=== PATIENT | female | born 1980 | race Caucasian/White ===

== ENCOUNTER 2023-02-06 09:17 | Outpatient (CLI) | payer OTHER, SELFPAY ==
--- NOTE | ~2023-02-06 | MM_ITS ---
EXAMINATION: MM screening donya BI w brandon HISTORY: Screening mammogram; baseline examination TECHNIQUE: Craniocaudal and mediolateral oblique 3-D tomosynthesis images were obtained and synthetic 2-D images were generated. CAD analysis was submitted and interpreted. COMPARISON: No prior mammogram is available for comparison at this institution. BREAST PARENCHYMAL COMPOSITION: There are scattered areas of fibroglandular density. FINDINGS: There is no evidence of suspicious mass, calcification, or architectural distortion to sugg est malignancy in either breast. There has been no suspicious interval change. IMPRESSION: 1. No mammographic evidence of malignancy. 2. Recommend routine screening mammography in one year. BI-RADS Category 1: Negative Reviewed, dictated and finalized at location A. UCT ACCOUNTANT
== END 2023-02-06 09:18 | disposition home or self-care (01) ==
LOC: ANHIMG 09:25
PROVIDERS: PCP Internal Medicine; Visit Provider Obstetrics & Gynecology
DX: Z12.31 Encounter for screening mammogram for malignant neoplasm of breast (principal)
CPT/HCPCS: 77063; 77067

== ENCOUNTER 2024-03-05 09:05 | Outpatient (CLI) | payer OTHER, SELFPAY ==
[2024-03-05 09:29] LABS: Basophils Absolute Auto 0.1 K/mm3 (0.0-0.1); Basophils Percent Auto 0.9 % (0.2-1.2); Hematocrit 43.6 % (37.0-47.0); Hemoglobin 14.4 g/dL (12.0-15.0); Immature Granulocyte Absolute 0.02 K/mm3 (0.00-0.031); Immature Granulocyte Percent A 0.3 % (0-0.5); Lymphocytes Absolute Auto 1.89 K/mm3 (0.9-3.2); Lymphocytes Percent Auto 27.9 % (18.3-44.2); Mean Corpuscular Hemoglobin 30.1 pg (26-34); Mean Platelet Volume 9.7 fl (7.4-10.4); Monocytes Absolute Auto 0.4 K/mm3 (0.1-0.6); Monocytes Percent Auto 5.5 % (2.6-8.5); Neutrophils Absolute Auto 4.4 K/mm3 (1.3-6.7); Neutrophils Percent Auto 65.4 % (45.5-73.1); Platelet Count Result 245 k/mm3 (150-375); Red Blood Count 4.79 M/mm3 (4.2-5.4); Red Cell Distribution Width 12.9 % (11.5-14.5); White Blood Count 6.8 K/mm3 (4.5-10.0)
== END 2024-03-05 09:06 | disposition home or self-care (01) ==
PROVIDERS: PCP Internal Medicine; Visit Provider Obstetrics & Gynecology
DX: Z01.812 Encounter for preprocedural laboratory examination (principal); R87.619 Unspecified abnormal cytological findings in specimens from cervix uteri
CPT/HCPCS: 36415; 85025; 86850; 86900; 86901

== ENCOUNTER 2024-03-08 01:00 | Day surgery (SDC) | payer OTHER, SELFPAY ==
--- NOTE | 2024-02-27 16:26 | PC.NURSE ---
Report to the Outpatient Waiting Room, entrance under the green pavilion located off [facility], at time 0930 on date 03/08/24. Planned Procedure Time:1130.? Time changes happen often and if your time is changed the preop area will call you the afternoon before. - You and your visitor will be asked to self-screen and do not enter if you have any COVID symptoms. Please call surgeon if you need to reschedule. - A mask is optional within the hospital at this time. Patients may have clear liquids (water, carbonated beverages, clear teas, apple juice) until 3 hours prior to surgery with a maximum of 20 ounces. 0730 - No food from midnight until time of surgery and no smoking. This includes no chewing gum, candy or mints. - Infants may have breast milk until 4 hours before surgery, formula 6 hours prior to surgery. - Children will be allowed to drink immediately following surgery.? If applicable, please bring a bottle or sippy cup to assist with drinking. Juice, water, soda, and popsicles are readily available.? For infants on formula, please bring formula the day of surgery.? Pacifiers are allowed. Take only the following medications with a SIP of water on the morning of surgery: Xanax, Wellbutrin, Topamax, Propylthiouracil, Control, Rizatriptan DO NOT STOP ANY OF YOUR OTHER PRESCRIPTION MEDICATIONS PRIOR TO SURGERY EXCEPT THE FOLLOWING Medications to discontinue per physician Semaglutid- Last dose patient took was January 30, 2024 Date to take last dose Please no make-up, nail mongolian, hairspray, perfume, deodorant, or body powder the day of surgery.? No jewelry (including any body piercings) or valuables the day of surgery, leave them at home.? Please take a shower or bath the night before, or the morning of, surgery with an antibacterial soap.? Wear comfortable, loose fitting clothing.? Children are encouraged to wear pajamas. - Jewelry must be removed prior to entering the operating room.? Rings and piercings that are not removed may be cut off. - The hospital will not accept responsibility for valuables.? - Please leave all valuables, including medications, at home the day of surgery. If you are going home after surgery, a licensed flatbed driver must drive you home.? - NO public transportation without another adult if you receive anesthesia. - We recommend that an adult stay with you for 24 hours following discharge. - We also recommend that you do not drive, make important decision, drink alcoholic beverages, or take any drugs that were not prescribed by your health care provider for at least 24 hours after your discharge time. For Pediatric surgeries, we recommend two adults accompany the child home. Follow any additional instructions given to you from your surgeon. Telephone instructions given to Patient- Rosa Isela Davis and asked if any additional questions and then verbalized understanding. Patient advised to call surgeon office or pre surgery nurse liaison [phone] if any additional questions.
--- NOTE | 2024-02-27 16:56 | PC.NURSE ---
Report to the Outpatient Waiting Room, entrance under the green pavilion located off [facility], at time 0930 on date 03/08/24. Planned Procedure Time: 1130.? Time changes happen often and if your time is changed the preop area will call you the afternoon before. - You and your visitor will be asked to self-screen and do not enter if you have any COVID symptoms. Please call surgeon if you need to reschedule. - A mask is optional within the hospital at this time. Patients may have clear liquids (water, carbonated beverages, clear teas, apple juice) until 3 hours prior to surgery with a maximum of 20 ounces. 0730 - No food from midnight until time of surgery and no smoking. This includes no chewing gum, candy or mints. - Infants may have breast milk until 4 hours before surgery, formula 6 hours prior to surgery. - Children will be allowed to drink immediately following surgery.? If applicable, please bring a bottle or sippy cup to assist with drinking. Juice, water, soda, and popsicles are readily available.? For infants on formula, please bring formula the day of surgery.? Pacifiers are allowed. Take only the following medications with a SIP of water on the morning of surgery: Xanax, Wellbutrin, Topamax, Tirosint, Control, Rizatriptan DO NOT STOP ANY OF YOUR OTHER PRESCRIPTION MEDICATIONS PRIOR TO SURGERY EXCEPT THE FOLLOWING Medications to discontinue per physician Semaglutide Date to take last dose Patient took last dose on Jan 30, 2024 Please no make-up, nail luxembourger, hairspray, perfume, deodorant, or body powder the day of surgery.? No jewelry (including any body piercings) or valuables the day of surgery, leave them at home.? Please take a shower or bath the night before, or the morning of, surgery with an antibacterial soap.? Wear comfortable, loose fitting clothing.? Children are encouraged to wear pajamas. - Jewelry must be removed prior to entering the operating room.? Rings and piercings that are not removed may be cut off. - The hospital will not accept responsibility for valuables.? - Please leave all valuables, including medications, at home the day of surgery. If you are going home after surgery, a licensed restaurant delivery driver must drive you home.? - NO public transportation without another adult if you receive anesthesia. - We recommend that an adult stay with you for 24 hours following discharge. - We also recommend that you do not drive, make important decision, drink alcoholic beverages, or take any drugs that were not prescribed by your health care provider for at least 24 hours after your discharge time. For Pediatric surgeries, we recommend two adults accompany the child home. Follow any additional instructions given to you from your surgeon. Telephone instructions given to Patient- Rosa Isela Davis and asked if any additional questions and then verbalized understanding. Patient advised to call surgeon office or pre surgery nurse liaison [phone] if any additional questions.
[2024-02-27 16:59] VITALS: BMI 21.6
--- NOTE | 2024-03-05 12:30 | PM.IMHP ---
H&P: HPI History of Present Illness Date/Time: 03/05/24 12:30 Chief Complaint: recurrent high-grade dysplasia Narrative: 43-year-old multiparous patient admitted for robotic hysterectomy bilateral salpingectomy secondary to recurrent high-grade OSCAR. She has had multiple colposcopies and leaps she has return with several episodes of high-grade OSCAR. She opts for hysterectomy and bilateral salpingectomy. Risks and benefits of this procedure reviewed including but not exclusive of , aspiration pneumonia, bleeding, transfusion, perforation injury to bowel, bladder, ureters, or other internal organs with need for open laparotomy. She received the [employer] handout entitled hysterectomy as well as de Lida handout. She had all questions answered. She asked to proceed. Review of Systems Review of Systems: All systems reviewed & are unremarkable except as noted in HPI and below PMFSH Family History Family History Grandparent Family history of Alzheimer's disease Family history of blood dyscrasia Family history of mental disorder Depression Family history of lung cancer Sibling Family history of migraine headaches Patient's sister is in good health Family history of allergic disorder Mother Family history of migraine headaches Patient's mother is in good health Father Hypertension Patient's father is in good health Family history of allergic disorder Other Family history of pancreatic cancer Social History Social History Smoking status: Never smoker Alcohol intake: never Spiritual care concerns: No Meds Home Medications and Allergies Home Medications ?Medication ?Instructions ?Recorded ?Confirmed ?Type alprazolam 0.5 mg tablet 0.5 mg PO BID PRN anxiety 02/27/24 02/27/24 History bupropion HCl 300 mg 24 hr tablet, 300 mg PO DAILY 02/27/24 02/27/24 History extended release (Wellbutrin XL) levothyroxine 150 mcg capsule 150 mcg PO DAILY 02/27/24 02/27/24 History (Tirosint) norgestrel 0.3 mg-ethinyl 1 tablet PO DAILY 02/27/24 02/27/24 History estradiol 30 mcg tablet (Jaqueline (28)) rizatriptan 10 mg tablet 10 mg PO DAILY PRN migraine 02/27/24 02/27/24 History headache semaglutide 2 mg/dose (8 mg/3 mL) 2 mg subcut WEEKLY 02/27/24 02/27/24 History subcutaneous pen injector (Ozempic) topiramate 100 mg tablet 100 mg PO Q12H 02/27/24 02/27/24 History Allergies Allergy/AdvReac Type Severity Reaction Status Date / Time No Known Allergies Allergy Verified 02/27/24 16:09 Exam Const: General: cooperative, healthy appearing and comfortable Nutritional Appearance: average body habitus Orientation/consciousness: oriented to person, oriented to place and oriented to time Resp: Effort & Inspection: normal respiratory effort Cardio: Rate: regular rate Rhythm: regular rhythm Heart sounds: S1 normal heart sound present and S2 normal heart sound present GI: Inspection: normal to inspection : External Female Exam: normal external appearance Speculum Exam - Vagina: normal appearance of the vagina Speculum Exam - Cervix: normal appearance of the cervix Bimanual exam- vagina & uterus: enlarged Bimanual Exam- Adnexa, other: normal adnexae Assessment and Plan Assessment and plan (1) Dysplasia of cervix, high grade WILVER 2: Code(s): N87.1 - Moderate cervical dysplasia Status: Acute Plan proceed with robotic assisted total vaginal hysterectomy bilateral salpingectomy
[2024-03-07] MEDS: oxyCODONE HCL (*CRX) 5 MG TAB IR PO (19:14)
[2024-03-08] VITALS (14 sets, daily range): BP systolic 90–145; BP diastolic 53–92; PULSE 73–89; RESP 10–16; TEMP 36.6–37.1; O2SAT 96–100
--- NOTE | 2024-03-08 06:34 | WPDHPUPDATE1 ---
History and Physical Update Update Date/Time: 03/08/24 06:34 History and Physical has been reviewed, including an updated exam of the patient. There are NO changes in the patient's condition. Risks, benefits, and alternatives have been discussed and questions answered. Patient agrees to proceed with procedure.
--- NOTE | 2024-03-08 08:29 | P.PNAN_ITS ---
Anes - Initial Pre Proc Eval Procedure: Operation Date: 03/08/24 11:30 Proposed Procedures p Robotic Assisted Total Vaginal Hysterectomy with Bilateral Salpingectomy - Ramirez Smith MD Date/Time: 03/08/24 08:29 Surgeon: Ramirez Smith MD Pre Op Diagnosis: abn pap, higrade OSCAR Patient Data Age: 43 Gender: F Height: 1.57 m Weight: 53.6 kg Allergies Allergy/AdvReac Type Severity Reaction Status Date / Time No Known Allergies Allergy Verified 02/27/24 16:09 Home Medications ?Medication ?Instructions ?Recorded ?Confirmed ?Type alprazolam 0.5 mg tablet 0.5 mg PO BID PRN anxiety 02/27/24 02/27/24 History bupropion HCl 300 mg 24 hr tablet, 300 mg PO DAILY 02/27/24 02/27/24 History extended release (Wellbutrin XL) levothyroxine 150 mcg capsule 150 mcg PO DAILY 02/27/24 02/27/24 History (Tirosint) norgestrel 0.3 mg-ethinyl 1 tablet PO DAILY 02/27/24 02/27/24 History estradiol 30 mcg tablet (Cryselle (28)) rizatriptan 10 mg tablet 10 mg PO DAILY PRN migraine 02/27/24 02/27/24 History headache semaglutide 2 mg/dose (8 mg/3 mL) 2 mg subcut WEEKLY 02/27/24 02/27/24 History subcutaneous pen injector (Ozempic) topiramate 100 mg tablet 100 mg PO Q12H 02/27/24 02/27/24 History hydrocodone 5 mg-acetaminophen 325 1 tablet PO Q4H PRN pain #20 tabs 03/08/24 Rx mg tablet Patient hx anesthesia problems: post op nausea/vomiting Family hx anesthesia problems: none Results Review: All pre-operative results and documents have been reviewed as part of the pre- operative evaluation. [facility] Past Medical History Medical History (Updated 03/08/24 @ 08:30 by Domingo Mckeon DO) Anxiety PONV (postoperative nausea and vomiting) History of thyroid cancer Hypothyroidism Family History Family History Grandparent Family history of Alzheimer's disease Family history of blood dyscrasia Family history of mental disorder Depression Family history of lung cancer Sibling Family history of migraine headaches Patient's sister is in good health Family history of allergic disorder Mother Family history of migraine headaches Patient's mother is in good health Father Hypertension Patient's father is in good health Family history of allergic disorder Other Family history of pancreatic cancer Social History Social History Smoking status: Never smoker Alcohol intake: never Spiritual care concerns: No Anes - Eval Final PreProcedure Day of Procedure 03/08/24 08:29 Patient weight: normal Heart: regular rate and rhythm Lungs: clear to auscultation Airway: Mallampati scale class II Neurological: alert and oriented Last oral intake: >/= 8 hours ASA classification: II Emergent: no Anesthetic plan: proceed Anesthesia type and monitoring: general ETT and standard monitoring Results Review: All pre-operative results and documents have been reviewed as part of the pre- operative evaluation. Informed Consent: The patient's anesthetic plan and its attendant risks and benefits were discussed with the patient/family/POA. Questions were solicited and answers provided to the satisfaction of the patient/family/POA.
[2024-03-08] MEDS: KETOROLAC 15 MG/ML VIAL (*BKC) IV PUSH (10:20)
[2024-03-08] MEDS: LACTATED RINGERS 1,000 ML 30 ML IV CONT ×2 (10:20→12:40)
[2024-03-08] MEDS: ACETAMINOPHEN 500 MG TABLET 1000 MG PO ×3 (10:20→23:46)
[2024-03-08] MEDS: SCOPOLAMINE 1 MG PATCH 1 PATCH TRANSDERM (10:20)
[2024-03-08 10:44] LABS: BEDSIDEPREGUCG Negative (Negative)
[2024-03-08] MEDS: ceFAZolin 2 GM/D5W 50 ML 2 GM/50 ML BAG IVPB (11:30)
--- NOTE | 2024-03-08 12:33 | W.PM.PROC2 ---
Procedure Note - Detailed Date of Procedure 03/08/24 Pre-op Diagnosis abn pap, higrade OSCAR Post-op Diagnosis Same Procedure Performed Robotic total vaginal hysterectomy and bilateral salpingectomy Surgeon Ramirez Smith MD Anesthesia General Indications 43-year-old female recurrent high-grade squamous intraepithelial lesion Findings Enlarged Uterus. Ovaries and tubes appeared within normal limits. Description of Procedure Patient was prepped and draped in the normal sterile fashion placed in the dorsal lithotomy position. Under excellent endotracheal anesthesia weighted speculum placed posterior fornix vagina. Anterior lip of the cervix grasped with a single-tooth tenaculum. Uterus sounded to 9cm. Serial dilatation with fragmented dilators performed followed by passage of the 8. GERMÁN and the 3. Cold cup. Next the 16 Japanese catheter was placed in the bladder draining clear urine. The weighted speculum and the single-tooth removed. The gloves were changed. A supraumbilical incision made the Veress needle passed in the abdomen. Abdomen filled with CO2 gas [id number]. The 8mm trocar advanced in the abdomen. Downside visualized. No injury seen. Patient placed in 18? 10 Trendelenburg. Right left lateral quadrant incisions made 8mm trocars advanced under direct visualization. Right upper quadrant incision made the 8mm trocar advanced under direct visualization assuring no injury. The robot was docked. Attention was turned to the mortgage counselor the left round ligament grasped, burned, cut. Anteriorly bladder flap was formed by sharply dissecting the peritoneum and reflecting the bladder caudally away from the cervix uterus the opposite round ligament which was clamped, burned, cut. Next the fallopian tube was sharply dissected away from the ovarian complex and left attached to its uterine origin. In similar fashion on the right. The right fallopian tube was sharply dissected away from the ovarian complex and left to the uterine origin.. Sparing the left ovary the utero-ovarian ligament was clamped, burned, cut brought to the previously cut round ligament. In similar fashion on the right sparing the right ovary, the utero-ovarian ligament was clamped, burned, cut brought to level of previously cut round ligament. The cardinal broad ligaments on the left were then sharply dissected did by clamping burning cutting and hugging the cervix uterus until the large tortuous vessels could be seen on the left. These were each individually clamped, burned, cut. In similar fashion on the right the cardinal broad ligaments were skeletonized clamping burning cutting and hugging the cervix uterus until the large uterine vessels could be seen on the right these were individually clamped, burned, cut. Blanching of the uterus was noted. A colpotomy incision made the cervix uterus and tubes removed through the vagina. The vagina then closed with continuous running 0V lock from lateral edge to lateral edge back to the midline. Irrigation undertaken until clear. Blood loss estimated [id number]. The robot was undocked. The gas removed from the abdomen. The trocars removed from the abdomen. The incisions closed with 4-0 Monocryl and glue. Instruments removed from the vagina and the patient was taken to recovery in satisfactory condition. All sponge, needle, instrument counts were correct. There were no immediate complications noted Estimated Blood Loss 25 Drains No Packing No Pathology Yes Complications No immediate complications Condition Stable Disposition PACU
--- NOTE | 2024-03-08 12:37 | PM.DS ---
DS: Admitting Diagnosis Discharge Date 2023 Admitting Diagnosis Recurrent high-grade dysplasia DS: Discharge Diagnosis Discharge Diagnosis (1) Dysplasia of cervix, high grade WILVER 2: Code(s): N87.1 - Moderate cervical dysplasia Status: Acute DS: Summary Hospital Course Reason for hospitalization: Patient was admitted for robotic hysterectomy bilateral salpingectomy on 03/08/2024. Hospital Course: Patient's hospital course unremarkable. She remained afebrile. She was up, voiding without difficulty, regular diet, ambulating, and generally without complaints. Time Spent with Patient Time attestation: Total time spent providing and/or coordinating discharge services: Exam Const: General: cooperative, healthy appearing, comfortable and average body habitus Orientation/consciousness: oriented to person, oriented to place and oriented to time HENMT: Head: normal to inspection Resp: Effort & Inspection: normal respiratory effort Cardio: Rate: regular rate Rhythm: regular rhythm Heart sounds: S1 normal heart sound present and S2 normal heart sound present GI: Inspection: normal to inspection and incision (Wounds are clean dry and intact) DS: Data Data Completed and Pending Pending studies at discharge: Pending at discharge 03/08/24 12:09 Surgical [PTH] Routine Labs on day of discharge: Labs from last 24 hours 03/08/24 10:20 POC Urine HCG, Qual Negative Discharge Plan Discharge Patient Disposition: Home, Self-Care Discharge Instructions: Nothing in the vagina for 6 weeks. Call or return if temperature above 100.4? F, increased abdominal pain, increased vaginal bleeding or any new problems.Some Complications to Watch for: ? Excessive incisional or vaginal drainage (more than one pad an hour). Additional Instructions: ? Expect some vaginal spotting for 2-4 days. ? Nothing vaginally (i.e. douching, intercourse, tampons) until follow up visit. Patient Instructions: Laparoscopic Hysterectomy (DC) Patient Language: Japanese Stand Alone Forms: General Discharge Instructions Follow-up/Referrals: Ramirez Alejandro MD [Physician] - 2 Weeks Discharge Medications: New hydrocodone-acetaminophen 5-325 mg tablet 1 tablet PO Q4H PRN (Reason: pain) Qty: 20 0RF Continued alprazolam 0.5 mg tablet 0.5 mg PO BID PRN (Reason: anxiety) rizatriptan 10 mg tablet 10 mg PO DAILY PRN (Reason: migraine headache) topiramate 100 mg tablet 100 mg PO Q12H Ozempic 2 mg/dose (8 mg/3 mL) pen injector 2 mg subcut WEEKLY bupropion HCl [Wellbutrin XL] 300 mg tablet extended release 24 hr 300 mg PO DAILY levothyroxine [Tirosint] 150 mcg capsule 150 mcg PO DAILY Discontinued Cryselle (28) 0.3-30 mg-mcg tablet 1 tablet PO DAILY
[2024-03-08] MEDS: fentaNYL CITRATE INJ (*CRX) 100 MCG/2 ML VIAL 25 MCG IV PUSH ×4 (13:48→13:59)
[2024-03-08] MEDS: DEXTROSE 5%/LACTATED RINGERS 1,000 ML 125 ML IV CONT (15:25)
[2024-03-08] MEDS: DOCUSATE SODIUM 100 MG CAPSULE PO (15:53)
[2024-03-08] MEDS: KETOROLAC 30 MG/ML VIAL (*BKC) IV PUSH ×2 (15:54→23:46)
[2024-03-08] MEDS: SIMETHICONE 80 MG TAB.CHEW PO (15:54)
--- NOTE | 2024-03-08 16:05 | PC.NURSE ---
This patient, Rosa Isela Davis, was received from PACU on 03/08/24 at 1500. Patient/family oriented to unit policies and routines
[2024-03-08] MEDS: oxyCODONE HCL (*CRX) 5 MG TAB IR PO ×2 (16:51→19:14)
[2024-03-09] MEDS: oxyCODONE HCL (*CRX) 5 MG TAB IR PO ×2 (01:32→07:33)
[2024-03-09 04:52] LABS: Basophils Percent Auto 0.3 % (0.2-1.2); Hemoglobin 11.3 g/dL (12.0-15.0); Immature Granulocyte Absolute 0.02 K/mm3 (0.00-0.031); Immature Granulocyte Percent A 0.2 % (0-0.5); Lymphocytes Absolute Auto 2.74 K/mm3 (0.9-3.2); Lymphocytes Percent Auto 28.6 % (18.3-44.2); Mean Corpuscular HGB Conc 33.2 g/dl (32-36); Mean Corpuscular Hemoglobin 30.2 pg (26-34); Mean Corpuscular Volume 90.9 fl (80-100); Mean Platelet Volume 10.1 fl (7.4-10.4); Monocytes Absolute Auto 0.6 K/mm3 (0.1-0.6); Monocytes Percent Auto 6.2 % (2.6-8.5); Neutrophils Absolute Auto 6.2 K/mm3 (1.3-6.7); Neutrophils Percent Auto 64.7 % (45.5-73.1); Platelet Count Result 188 k/mm3 (150-375); Red Blood Count 3.74 M/mm3 (4.2-5.4); Red Cell Distribution Width 12.9 % (11.5-14.5); White Blood Count 9.6 K/mm3 (4.5-10.0)
[2024-03-09] MEDS: ACETAMINOPHEN 500 MG TABLET 1000 MG PO (05:52)
[2024-03-09] MEDS: KETOROLAC 30 MG/ML VIAL (*BKC) IV PUSH (05:54)
[2024-03-09 06:00] VITALS: BP 115/66; PULSE 71; RESP 16; TEMP 37.1; O2SAT 99
[2024-03-09] MEDS: DOCUSATE SODIUM 100 MG CAPSULE PO (07:34)
[2024-03-09] MEDS: ENOXAPARIN 40 MG/0.4 ML SYRINGE SUB-Q (07:34)
[2024-03-09] MEDS: SIMETHICONE 80 MG TAB.CHEW PO (07:34)
--- NOTE | 2024-03-09 09:29 | PM.GYNPNOP ---
[employer] - A/P Assessment and plan (1) Dysplasia of cervix, high grade WILVER 2: Code(s): N87.1 - Moderate cervical dysplasia Status: Acute Assessment and Plan: A: POD#1, doing well. P: Home to f/u 2 weeks in office. Postoperative Procedures: Procedures Operation Date: 03/08/24 11:30 Actual Procedure Side Surgeon p Robotic Assisted Total Vaginal Hysterectomy with Bilateral Salpingectomy Bilateral Ramirez Smith MD Postoperative day: 1 Time Spent With Patient Time with patient: less than 15 minutes [employer]- PN:Subj Post-Op Subjective Date/time seen: 03/09/24 09:29 Interval history: Pain OK. Tolerating diet. Voiding. Would like to go home. Exam Narrative: AVSS I/O OK ABD soft, nontender. Incisions c/d/i. EXT nontender [employer] - PN: Obj Data Vital Signs Vital Signs: Vital Signs - 24 hr 03/08/24 10:20 03/08/24 12:40 03/08/24 12:55 Temperature 36.6 C 36.8 C Pulse Rate 89 75 74 Respiratory Rate 14 10 L 10 L Blood Pressure 145/92 H 105/87 98/68 L Pulse Oximetry 100 100 100 Oxygen Delivery Room Air Simple Face Mask Simple Face Mask Oxygen Flow Rate 8 8 03/08/24 13:10 03/08/24 13:12 03/08/24 13:25 Temperature Pulse Rate 78 73 Respiratory Rate 10 L 11 L Blood Pressure 104/74 105/70 Pulse Oximetry 99 99 100 Oxygen Delivery Simple Face Mask Simple Face Mask Simple Face Mask Oxygen Flow Rate 8 8 8 03/08/24 13:40 03/08/24 13:55 03/08/24 14:10 Temperature Pulse Rate 84 78 80 Respiratory Rate 14 10 L 10 L Blood Pressure 114/77 105/74 108/69 Pulse Oximetry 100 96 98 Oxygen Delivery Room Air Room Air Room Air Oxygen Flow Rate 03/08/24 14:25 03/08/24 15:15 03/08/24 19:20 Temperature 36.6 C Pulse Rate 77 77 85 Respiratory Rate 10 L 16 14 Blood Pressure 106/76 104/65 Pulse Oximetry 100 99 98 Oxygen Delivery Room Air Room Air Oxygen Flow Rate 03/08/24 19:52 03/08/24 23:56 03/08/24 23:56 Temperature 37.1 C 36.9 C Pulse Rate 85 74 74 Respiratory Rate 14 14 14 Blood Pressure 90/53 L 108/71 Pulse Oximetry 98 97 97 Oxygen Delivery Room Air Oxygen Flow Rate 03/09/24 06:00 03/09/24 06:00 03/09/24 07:40 Temperature 37.1 C Pulse Rate 71 71 Respiratory Rate 16 16 Blood Pressure 115/66 Pulse Oximetry 99 99 Oxygen Delivery Room Air Room Air Oxygen Flow Rate Intake/Output Intake/Output: Intake & Output 03/06/24 03/07/24 03/08/24 03/09/24 23:59 23:59 23:59 23:59 Intake Total 490 650 Output Total 190 825 Balance 300 -175 Meds/Results Medications: Active Medications Generic Name Dose Route Start Last Admin Trade Name Freq PRN Reason Stop Dose Admin Acetaminophen 1,000 mg 03/08/24 18:00 03/09/24 05:52 Acetaminophen 500 Mg Tablet PO 1,000 mg Q6HR CHANTELLE Administration Docusate Sodium 100 mg 03/08/24 17:00 03/09/24 07:34 Docusate Sodium 100 Mg Capsule PO 100 mg BID CHANTELLE Administration Enoxaparin Sodium 40 mg 03/09/24 09:00 03/09/24 07:34 Enoxaparin 40 Mg/0.4 Ml Syringe SUB-Q 40 mg DAILY CHANTELLE Administration Ibuprofen 600 mg 03/09/24 12:00 Ibuprofen 600 Mg Tablet PO Q6HR [facility] Naloxone HCl 0.1 mg 03/08/24 14:29 Naloxone Hcl 0.4 Mg/Ml Vial IV PUSH Q2M PRN Respiratory rate less than 10 Ondansetron HCl 4 mg 03/08/24 14:29 Ondansetron Inj 4 Mg/2 Ml Vial IV PUSH Q6H PRN Nausea And Vomiting Oxycodone HCl 5 mg 03/08/24 14:29 03/09/24 07:33 Oxycodone Hcl (*Crx) 5 Mg Tab Ir PO 5 mg Q4H PRN Administration Pain Rated 4-6 Oxycodone HCl 10 mg 03/08/24 14:29 Oxycodone Hcl (*Crx) 5 Mg Tab Ir PO Q6H PRN Pain Rated 7-10 Simethicone 80 mg 03/08/24 17:00 03/09/24 07:34 Simethicone 80 Mg Tab.Chew PO 80 mg TIDWM CHANTELLE Administration Labs 03/09/24 04:36 Labs: Laboratory Results - last 24 hr 03/08/24 03/09/24 10:20 04:36 WBC 9.6 RBC 3.74 L Hgb 11.3 L D Hct 34.0 L MCV 90.9 MCH 30.2 MCHC 33.2 RDW 12.9 Plt Count 188 MPV 10.1 Immature Gran % (Auto) 0.2 Neut % (Auto) 64.7 Lymph % (Auto) 28.6 [place] % (Auto) 6.2 Eos % (Auto) 0.0 Baso % (Auto) 0.3 Lymph # (Auto) 2.74 [place] # (Auto) 0.6 Eos # (Auto) 0.0 Baso # (Auto) 0.0 Abs Immat Gran (auto) 0.02 Absolute Neuts (auto) 6.2 Absolute Nucleated RBC 0.000 Nucleated RBC % 0.0 POC Urine HCG, Qual Negative
--- NOTE | 2024-03-09 09:31 | P.DS_ITS ---
DS: Admitting Diagnosis Discharge Date 03/09/24 Admitting Diagnosis Cervical dysplasia DS: Discharge Diagnosis Discharge Diagnosis (1) Dysplasia of cervix, high grade WILVER 2: Code(s): N87.1 - Moderate cervical dysplasia Status: Acute DS: Summary Hospital Course Hospital Course: She was admitted for surgery. Did well postop and was able to go home on POD1. Time Spent with Patient Time attestation: Total time spent providing and/or coordinating discharge services: DS: Data Data Completed and Pending Pending studies at discharge: Pending at discharge 03/08/24 12:09 Surgical [PTH] Routine Labs on day of discharge: Labs from last 24 hours 03/09/24 03/08/24 04:36 10:20 WBC 9.6 RBC 3.74 L Hgb 11.3 L D Hct 34.0 L MCV 90.9 MCH 30.2 MCHC 33.2 RDW 12.9 Plt Count 188 MPV 10.1 Immature Gran % (Auto) 0.2 Neut % (Auto) 64.7 Lymph % (Auto) 28.6 [place] % (Auto) 6.2 Eos % (Auto) 0.0 Baso % (Auto) 0.3 Lymph # (Auto) 2.74 [place] # (Auto) 0.6 Eos # (Auto) 0.0 Baso # (Auto) 0.0 Abs Immat Gran (auto) 0.02 Absolute Neuts (auto) 6.2 Absolute Nucleated RBC 0.000 Nucleated RBC % 0.0 POC Urine HCG, Qual Negative Discharge Plan Discharge Patient Disposition: Home, Self-Care Discharge Instructions: Nothing in the vagina for 6 weeks. Call or return if temperature above 100.4? F, increased abdominal pain, increased vaginal bleeding or any new problems. Patient Language: Bulgarian Stand Alone Forms: General Discharge Instructions Follow-up/Referrals: Ramirez Alejandro MD [Physician] - 2 Weeks Discharge Medications: New hydrocodone-acetaminophen 5-325 mg tablet 1 tablet PO Q4H PRN (Reason: pain) Qty: 20 0RF Continued alprazolam 0.5 mg tablet 0.5 mg PO BID PRN (Reason: anxiety) rizatriptan 10 mg tablet 10 mg PO DAILY PRN (Reason: migraine headache) topiramate 100 mg tablet 100 mg PO Q12H Ozempic 2 mg/dose (8 mg/3 mL) pen injector 2 mg subcut WEEKLY bupropion HCl [Wellbutrin XL] 300 mg tablet extended release 24 hr 300 mg PO DAILY levothyroxine [Tirosint] 150 mcg capsule 150 mcg PO DAILY Discontinued Cryselle (28) 0.3-30 mg-mcg tablet 1 tablet PO DAILY
== END 2024-03-09 10:22 | disposition home or self-care (01) ==
LOC: ANHSURGERY 09:14 → ANHOB2 14:32
PROVIDERS: PCP Internal Medicine; Visit Provider Obstetrics & Gynecology
PROC: (CPT 58552; principal; 2024-03-08 11:30)
DX: N87.1 Moderate cervical dysplasia (principal); E03.9 Hypothyroidism, unspecified; F41.9 Anxiety disorder, unspecified; Z79.85 Long-term (current) use of injectable non-insulin antidiabetic drugs
CPT/HCPCS: 58552; S2900; 36415; 85025; 88307; 99199; A9270; J0690; J1100; J1171; J1200; J1650; J1885; J2003; J2250; J2371; J2405; J2704; J3010; J7120; J7121